=== PATIENT | male | born 1995 | race Asian ===

== ENCOUNTER 2016-11-26 02:44 | Emergency (ER) | payer SELFPAY ==
[~2016-11-26] VITALS: Ht 182.9 cm; Wt 72.6 kg
[2016-11-26 02:47] VITALS: BP_SYST 128
[2016-11-26] MEDS ORDERED: BACITRACIN 1 GM OINT TP ONE ×2 (03:00→03:14)
== END 2016-11-26 03:10 | disposition home or self-care (01) ==
LOC: SED 02:44
DX: S80.211A Abrasion, right knee, initial encounter (principal); S50.311A Abrasion of right elbow, initial encounter; Y08.89XA Assault by other specified means, initial encounter; Y93.89 Activity, other specified; Y92.89 Other specified places as the place of occurrence of the external cause; Y99.8 Other external cause status
CPT/HCPCS: 99283